=== PATIENT | female | born 1995 | race Caucasian/White ===

== ENCOUNTER 2020-02-20 21:44 | Emergency (ER) | payer BC ==
[2020-02-20] MEDS ORDERED: LIDOCAINE 1% 10 ML VIAL INJ ONE (22:15)
--- NOTE | 2020-02-20 22:41 | ED.PDOC ---
History of Present Illness - General Chief Complaint: Laceration Stated Complaint: left knee laceration Time Seen by Provider: 02/20/20 22:39 Additional Information: 24-year-old female, presents to the ER because of a laceration to the left lower extremity, patient was on her bowel, and she is sleep when she had a metal object, did not heal directly on the knee but it was below the knee, but she has not had tetanus denies any medical problem - History of Present Illness Timing/Duration: just prior to arrival Severity: mild Location: extremities Improving Factors: nothing Worsening Factors: nothing Associated Symptoms: denies symptoms Review of Systems - Review of Systems Constitutional: States: no symptoms reported EENTM: States: no symptoms reported Respiratory: States: no symptoms reported Cardiology: States: no symptoms reported Gastrointestinal/Abdominal: States: no symptoms reported Genitourinary: States: no symptoms reported Musculoskeletal: States: no symptoms reported Skin: States: no symptoms reported Neurological: States: no symptoms reported Endocrine: States: no symptoms reported Hematologic/Lymphatic: States: no symptoms reported Physical Exam - Physical Exam General Appearance: Alert, Well Developed, Well Groomed, Well Hydrated, Well Nourished Eyes, Ears, Nose, Throat Exam: PERRL/EOMI, normal ENT inspection, TMs normal, pharynx normal Neck: non-tender, full range of motion, supple Cardiovascular/Chest: normal peripheral pulses, regular rate, rhythm, no edema, no gallop, no JVD, no murmur Respiratory: chest non-tender, lungs clear, normal breath sounds, no respiratory distress, no accessory muscle use, respiratory distress Gastrointestinal/Abdominal: normal bowel sounds, non tender, soft Back Exam: normal inspection Extremity: other - There is a 5 cm laceration below the knee that does not involve the patella or the joint space is not infected clean and superficial Neurologic: team lead II-XII nml as tested, no motor/sensory deficits, alert, normal mood/affect, oriented x 3 Skin Exam: warm/dry, normal color Skin Problem Location: lower extremities - Left lower extremity ulceration Lymphatic: no adenopathy Procedures - Laceration/Wound Repair Left Anterior Knee Wound's Depth, Shape: superficial Wound Explored: clean Irrigated w/ Saline (cc's): 25 Betadine Prep?: No Anesthesia: 1% Lidocaine Volume Anesthetic (cc's): 5 Wound Debrided: minimal Wound Repaired With: sutures Suture Size/Type: 3:0 Number of Sutures: 5 Layer Closure?: No Sterile Dressing Applied?: No Splint Applied?: No Sling Applied?: No Progress: Surgery was repaired without any complication patient will receive a tetanus sh ot instructions will be given to keep the wound dry and clean may use water and soap to keep it clean, and return to the ER in 10 days for suture removal Departure - Departure Clinical Impression: Laceration Knee laceration Qualifiers: Encounter type: initial encounter Laterality: left Qualified Code(s): S81.012A - Laceration without foreign body, left knee, initial encounter Disposition: Discharge to Home or Self Care Condition: Fair Departure Forms: ED Discharge - Pt. Copy, Patient Portal Self Enrollment Instructions: DI for Laceration Repair, DI for Laceration Repair -- Simple Diet: resume usual diet Additional Instructions: Clean wound with water and soap 3 times a day, return 10 days for suture removal
[2020-02-20] MEDS ORDERED: TETANUS,DIPHTHERIA,PERTUSSIS 1 EA SYG IM ONE (22:51)
[2020-02-21 02:13] VITALS: O2SAT 99
[2020-02-21 02:19] VITALS: BP 142/64; TEMP 98.9
== END 2020-02-20 23:00 | disposition home or self-care (01) ==
LOC: ER 21:44
DX: S81.012A Laceration without foreign body, left knee, initial encounter (principal); W26.8XXA Contact with other sharp object(s), not elsewhere classified, initial encounter; Y92.9 Unspecified place or not applicable